=== PATIENT | male | born 1985 | race Caucasian/White ===

== ENCOUNTER 2018-08-31 00:15 | Emergency (ER) | payer MEDICAID ==
[2018-08-31] MEDS: LORAZEPAM 1 MG TAB PO (02:03)
== END 2018-08-31 02:59 | disposition home or self-care (01) ==
LOC: FTE 00:15
DX: F41.9 Anxiety disorder, unspecified (principal); F17.210 Nicotine dependence, cigarettes, uncomplicated
CPT/HCPCS: 93005; 99283-25